=== PATIENT | male | born 1955 | race Caucasian/White ===

== ENCOUNTER 2020-02-12 05:27 | Day surgery (SDC) | payer OTHER ==
[2020-02-05 09:37] LABS: BASOPHILS # (AUTO) 0.1 X10'3 (0-0.2); BASOPHILS % (AUTO) 0.9 % (0-1); EOSINOPHILS % (AUTO) 0.2 % (0-6); LYMPHOCYTES # (AUTO) 1.8 X10'3 (1.1-4.8); LYMPHOCYTES % (AUTO) 20.7 % (21-51); MEAN CORPUSCULAR HEMOGLOBIN 32.7 PG (27.0-31.0); MEAN CORPUSCULAR HGB CONC 35.1 g/dL (33.0-36.5); MEAN CORPUSCULAR VOLUME 93.2 FL (78-98); MEAN PLATELET VOLUME 8.6 FL (7.4-10.4); MONOCYTES # (AUTO) 0.5 X10'3 (0-0.9); MONOCYTES % (AUTO) 5.6 % (2-12); NEUTROPHILS # (AUTO) 6.3 X10'3 (1.8-7.7); NEUTROPHILS % (AUTO) 72.6 % (42-75); PRE OP PLATELET COUNT 257 X10'3 (140-440); RED BLOOD COUNT 4.29 X10'6 (4.70-6.10); RED CELL DISTRIBUTION WIDTH 13.2 % (11.5-14.5)
[2020-02-05 09:43] LABS: ALBUMIN 3.9 G/DL (3.4-5.0); ALBUMIN/GLOBULIN RATIO 1.1 (1.1-1.5); ALKALINE PHOSPHATASE 106 IU/L (46-116); BLOOD UREA NITROGEN 11 MG/DL (7-18); BUN/CREATININE RATIO 12.2 (5.4-32.0); CALCIUM 8.7 MG/DL (8.5-10.1); CHLORIDE 105 MMOL/L (99-107); PRE OP ALT 33 U/L (30-65); PRE OP ANION GAP 9 (8-16); PRE OP AST 22 U/L (10-37); PRE OP BILIRUB, TOTAL 0.4 MG/DL (0.0-1.0); PRE OP GLUCOSE 117 MG/DL (70-104); PRE OP POTASSIUM 4.3 MMOL/L (3.4-5.1); PRE OP SODIUM 140 MMOL/L (135-145); TOTAL CARBON DIOXIDE 26.4 MMOL/L (24-32); TOTAL PROTEIN 7.4 G/DL (6.4-8.2); eGFR 86 ML/MIN
[~2020-02-12] VITALS: Ht 172.7 cm; Wt 59.0 kg
[2020-02-12] VITALS (12 sets, daily range): BP systolic 155–175; BP diastolic 90–108
[~2020-02-12 05:27] MED LIST: ASCO100T12 PO; CALCIUM MAG ZINC; CBD; CYAN250010 PO; FINA5TAB11 PO; PANT20TA18 PO; VITAMIN D; VITAMIN E; ringers solution, lacted 1,000 ML IV SCH
[2020-02-12] MEDS ORDERED: ceFAZolin 2gm in dextrose, iso 50 ML IV ONE (05:30)
[2020-02-12] MEDS ORDERED: famotidine 20mg tablet PO ONE (05:30)
[2020-02-12] MEDS ORDERED: LIDOcaine 1% 30ml preserv. free vial ONE (06:44)
[2020-02-12] MEDS ORDERED: BUPIVAcaine/PF 2.5 mg/ml (0.25%) 30ml vial ONE (06:44)
[2020-02-12] MEDS ORDERED: fentaNYL/PF 50MCG/1 ML 2ML syringe ONE ×2 (07:25→08:52)
[2020-02-12] MEDS ORDERED: rocuronium 10mg/ml inj IV ONE (07:29)
[2020-02-12] MEDS ORDERED: dexamethasone sod phosphate 4mg/ml inj. ONE (07:29)
[2020-02-12] MEDS ORDERED: LIDOcaine 2% (20mg/ml) 5ml vial ONE (07:29)
[2020-02-12] MEDS ORDERED: propofol inj 20 ML IV ONE (07:29)
[2020-02-12] MEDS ORDERED: ringers solution, lacted 1,000 ML IV SCH (07:35)
[2020-02-12] MEDS ORDERED: morphine 2 MG/ML inj. syringe IV PRN (07:35)
[2020-02-12] MEDS ORDERED: proCHLORperazine 10 MG/2 ml inj IV PRN (07:35)
[2020-02-12] MEDS ORDERED: meperidine/PF 25mg/ml syringe IV PRN ×3 (07:35)
[2020-02-12] MEDS ORDERED: ondansetron/PF 4mg/2ml inj IV PRN (07:35)
[2020-02-12] MEDS ORDERED: morphine 4 MG/ML inj SYRINge IV PRN (07:35)
[2020-02-12] MEDS ORDERED: sevoflurane 250ml liquid IH ONE (07:45)
[2020-02-12] MEDS ORDERED: acetaminophen 1000 MG/100ml vial IV ONE (07:45)
[2020-02-12] MEDS ORDERED: glycopyrrolate 0.2mg/ml inj ONE (08:42)
[2020-02-12] MEDS ORDERED: neostigmine methylsulfate 1 MG/ML 10ml vial ONE (08:42)
[2020-02-12] MEDS ORDERED: ondansetron/PF 4mg/2ml inj ONE (08:42)
--- NOTE | 2020-02-12 08:54 | NUR ---
Received from OR via [facility] , accompanied by Anesthesiologist SIS and report given by Anesthesiolgist. PATIENT WITH 20G PIV IN RIGHT UE RUNNING LR AT 100. DENIES PAIN AT THIS TIME. 3 ABDOMINAL BANDAIDS PRESENT. ALL CDI. Addendum: 02/12/20 at 0916 by Salvador Hong RN, RN Amended: Links added.
[2020-02-12] MEDS ORDERED: HYDROcodone/acetaminophen 5mg/325mg tablet PO PRN (09:00)
[2020-02-12] MEDS ORDERED: hydrALAZINE 20mg/ml inj. IV PRN (09:05)
--- NOTE | 2020-02-12 12:24 | NUR ---
ALL CRITERIA FOR TRANSFER TO HOME HAS BEEN ACHIEVED. PEREYRA CATHETER PLACED WITH 400 CC URINE RETURN. [id number] PATIENT ON DON/DOFF OF LEG VS NIGHT TIME BAG. EXPLAINED THE EMPTYING AND DC OF PEREYRA CATHETER ON SUNDAY. PATIENT COMFORTABLE WITH USE OF THESE BAGS. OUT VIA WHEELCHAIR TO PERSONAL; VEHICLE WHERE A NEIGHBOR TOOK PATIENT HOME. ALL DC INSTRUCTIONS COVERED AND ALL QUESTIONS ANSWERED. Addendum: 02/12/20 at 1240 by Salvador Hong RN, RN Amended: Links added.
== END 2020-02-12 12:24 | disposition home or self-care (01) ==
LOC: PAS 05:27
PROVIDERS: ATTEND Surgery
DX: K40.90 Unilateral inguinal hernia, without obstruction or gangrene, not specified as recurrent (principal); J44.9 Chronic obstructive pulmonary disease, unspecified; K21.9 Gastro-esophageal reflux disease without esophagitis; N40.0 Benign prostatic hyperplasia without lower urinary tract symptoms; Z98.890 Other specified postprocedural states; Z20.828 Contact with and (suspected) exposure to other viral communicable diseases; Z79.899 Other long term (current) drug therapy; Z81.1 Family history of alcohol abuse and dependence; Z82.61 Family history of arthritis
CPT/HCPCS: 36415; 49650; 80053; 82948; 85025; 87635; 93005; C1781; J0131; J0360; J1100; J2001; J2175; J2270; J2405; J2704; J2710; J3010; J3490; A4215; A4618; J7120

== ENCOUNTER 2022-12-19 13:16 | Emergency (ER) | payer OTHER ==
[~2022-12-19] VITALS: Ht 172.7 cm; Wt 55.5 kg
[~2022-12-19 13:16] MED LIST changes: -ringers solution, lacted 1,000 ML IV SCH
[2022-12-19 13:51] VITALS: BP 132/93; PULSE 84; TEMP 98.3; O2SAT 99
[2022-12-19] MEDS ORDERED: AMOX-101 PO (15:33)
[2022-12-19] MEDS ORDERED: CETI10TA19 PO (15:33)
[2022-12-19 15:43] VITALS: RESP 16
== END 2022-12-19 16:35 | disposition home or self-care (01) ==
LOC: ER 13:17
DX: J32.8 Other chronic sinusitis (principal)
CPT/HCPCS: 99284

== ENCOUNTER 2024-08-02 12:14 | Emergency (ER) | payer OTHER ==
[~2024-08-02] VITALS: Ht 172.7 cm; Wt 56.8 kg
[~2024-08-02 12:14] MED LIST changes: +CETI10TA19 PO
[2024-08-02 12:22] VITALS: BP 165/93; PULSE 74; RESP 19; O2SAT 99
[2024-08-02] MEDS: LIDOcaine 1% W/epiNEPHrine 1:100,000 20ml vial IJ ONE (13:39)
[2024-08-02] MEDS: HYDROcodone/acetaminophen 10/325mg tab PO ONE (13:39)
[2024-08-02] MEDS: TETanus/Pertussis (Acell)/Diphther VAC/PF (Tdap-Adult) 0.5ml syringe IMVAC ONE (13:41)
--- NOTE | 2024-08-02 14:00 | Physician Documentation ---
History of Present Illness ~ Chief Complaint: Laceration Stated Complaint: FINGER LAC Time Seen by MD: 13:29 OK to notify your PCP?: Yes Source: patient Mode of Arrival: POV Exam Limitations: no limitations HPI Right-handed male with chief complaint laceration to left index finger that occurred just prior to arrival. He states he was cutting the weeds around his propane tank with his pocket knife when his pocket knife slipped and cut his left index finger. No pre arrival treatment. Last tetanus more than 10 years ago. He states he is worried about a tendon injury with his finger but admits he can bend his finger normally. [facility] finger due to glass that has been in her it his fingers since he injured his finger in [employer] a few years ago. He states [employer] did not want to do anything about it and they told me that the glass would come out but it did not because I still have pain. He denies any other concerns today. Tetanus Within 5 Years: No Medication Reconciliation Allergies: Coded Allergies: No Known Allergies (Unverified , 08/02/24) Scheduled Ascorbic Acid (Vitamin C), Unknown Dose PO DAILY, (Reported) Cetirizine HCl (Cetirizine HCl), 1 TAB PO DAILY Cyanocobalamin (Vitamin B-12) (Vitamin B12), Unknown Dose PO DAILY, (Reported) Finasteride (Finasteride), 1 TABLET PO DAILY, (Reported) Pantoprazole Sodium (Protonix), 1 TAB PO DAILY, (Reported) Miscellaneous Medications [Calcium Mag Zinc], Unknown Dose, (Reported) [Cbd], Unknown Dose, (Reported) [Vitamin D], Unknown Dose, (Reported) [Vitamin E], Unknown Dose, (Reported) Past Medical History Past Medical History: *ENT*, Allergic Rhinitis Past Surgical History: noncontributory Lives with: Family Lives In: Home Occupation: retired Review of Systems All Other Systems at this time: Reviewed and Negative Physical Exam Vital Signs: Temperature: 98.4, Source: Temporal, Heart Rate: 74, Respiratory Rate: 19, BP: 165/93, Pulse Oximetry: 99, Weight: 56.820 Oxygen Flow Rate: 0 Physical Exam EXTREMITY: Left index finger on dorsal surface there is a laceration that is superficial and appears to have lacerated the skin at an angle, the skin is laying down and skin edges are well approximated. arom of digit is full. cap refill <2seconds at index finger tip. General Appearance: Alert, WD/WN. NAD. HEENT: NCAT, PERRL, EOMI. Neck: Supple, trachea midline. Lungs: Breathing unlabored Neurological: Alert and oriented x4, normal gait. Psychiatric: Affect congruent with mood. Procedures Laceration/Wound Repair Laceration : Length (cm): 2 Anesthesia: none Prep: irrigated by nurse Debrided: minimal Undermining: none Margins: revised Foreign Body: not identified Repaired: skin Wound Repaired With: Steri-strips Dressing Applied: simple Splint Applied?: Yes Type of Splint Applied: DIGIT SPLINT Progress Results/Orders Reviewed/noted all lab results: Yes Results/Orders Orders - AMAYA MONTELONGO Laceration/I&D Tray Set Up (08/02/24 13:29) General Nursing Order (08/02/24 13:49) Completed Orders - AMAYA MONTELONGO Tetanus/Pertuss/Diph Acell/Pf (Boostrix (08/02/24 13:30) Hydrocodone/Apap 10/325 (Prospect 10/325mg (08/02/24 13:30) Lidocaine 1% W/Epi 1:100,000 (Xylocaine (08/02/24 13:30) Medications Received in ER Medications (Trade) Dose Ordered Sig/Aleena Route PRN Reason Start Time Stop Time Status Last Admin Dose Admin (Boostrix vaccine syringe) 0.5 ml ONCE ONCE IMVAC 08/02/24 13:30 08/02/24 13:31 DC 08/02/24 13:41 0.5 ML Vital Signs 08/02/24 12:22 Temp 98.4 Pulse 74 Resp 19 B/P (MAP) 165/93 Pulse Ox 99 O2 Flow Rate 0 Medical Decision Making Differential Dx:Considerations: Include: Abrasion, Avulsion, Contusion, Laceration, Fracture, Hematoma, Neurovascular injury, Retained foreign body, Other Departure Time of Disposition: 14:00 Disposition: 01 HOME / SELF CARE / HOMELESS Impression: Primary Impression: Laceration Condition: Stable (IF) Discharge Instructions: Laceration Care, Adult, [id number] Additional Instructions: DO NOT GET STERI STRIPS WET X 72HOURS. ALLOW THEM TO COME OFF ON THEIR OWN WEAR DIGIT SPLINT FOR ABOUT 7DAYS TO ALLOW FOR THE SKIN TO HEAL. YOU COULD ALSO DAXA TAPE THE FINGER TO THE ADJACENT FINGER. Referrals: NO PRIMARY CARE PROVIDER (PCP) Education Educated: Patient Educated regarding: diagnosis, treatment, need for follow up Signature Scribe Signature: X Attestation: AMAYA CELIS Aug 02, 2024 14:00
[2024-08-02 14:12] VITALS: TEMP 98.4
== END 2024-08-02 14:17 | disposition home or self-care (01) ==
LOC: ER 12:15
DX: S61.211A Laceration without foreign body of left index finger without damage to nail, initial encounter (principal); Z79.899 Other long term (current) drug therapy; W26.0XXA Contact with knife, initial encounter; Y93.89 Activity, other specified; Y92.89 Other specified places as the place of occurrence of the external cause; Y99.8 Other external cause status
CPT/HCPCS: 29130; 90471; 90715; 99283; A6449